=== PATIENT | female | born 1945 | race Caucasian/White ===

== ENCOUNTER 2017-02-13 12:14 | Emergency (ER) | payer OTHER ==
[~2017-02-13 12:14] MED LIST: ATENOLOL25 M1 PO; BENTYL10 M1 PO; CERTAGEN1 EACH PO; COLESTID1 GM PO; HCTZ25 MG PO; K-TAB ER20 MEQ PO; LEVAQUIN500 MG PO; MEDROL 4MG DOSEP4 MG PO; NORVASC 10MG TA10 MG PO; PLAVIX75 MG PO; PRINIVIL20 MG PO; PROBIOTIC PO; PROMETHAZINE-D120 ML PO; PROTONIX 40MG T40 MG PO; VENTOLIN (2.5 MG/3 M NEB; VYTORIN 10-201 EACH PO; ZOFRAN4 MG PO
[2017-02-13 13:19] LABS: BASOPHIL 0.3 % (0-2); EOSINOPHIL 1.2 % (0-7); HCT 38.6 % (37.0-47.0); HGB 12.6 g/dl (12.5-16.0); LYMPHOCYTE 25.8 % (15-48); MCH 27.7 pg (25.0-31.0); MCHC 32.6 g/dL (32.0-36.0); MCV 84.8 fL (78.0-100.0); MPV 10.6 fL (6.0-9.5); NEUTROPHIL 62.7 % (41-80); PLT 314 K/uL (150-400); RBC 4.55 M/uL (4.20-5.40); WBC 9.4 K/uL (4.0-10.5)
[2017-02-13 13:25] LABS: BILIRUBIN NEGATIVE (NEGATIVE); BLOOD NEGATIVE Ery/uL (NEGATIVE); CLARITY CLEAR (CLEAR); COLOR YELLOW (YELLOW); GLUCOSE (U) NORMAL (NORMAL); KETONE (U) NEGATIVE (NEGATIVE); LEUKOCYTES NEGATIVE Leu/uL (NEGATIVE); NITRITE NEGATIVE (NEGATIVE); PROTEIN NEGATIVE (NEGATIVE); UROBILINOGEN 0.2 mg/dL (0.2-1.0); pH 6.5 (5.0-9.0)
[2017-02-13 13:32] LABS: ALBUMIN 4.2 g/dL (3.4-4.8); BILIRUBIN - TOTAL 0.2 mg/dL (0.1-1.0); CREATININE 1.6 mg/dL (0.5-1.0); GLOBULIN (CALCULATION) 3.1 g/dL (2.2-4.2); POTASSIUM 4.4 mmol/L (3.5-5.1); TOTAL PROTEIN 7.3 g/dL (6.4-8.3)
[2017-02-13 13:33] LABS: LACTIC ACID 1.1 mmol/L (0.5-2.2)
== END 2017-02-13 14:45 | disposition home or self-care (01) ==
LOC: FER 12:14
PROVIDERS: Nurse Practitioner Family
DX: R19.7 Diarrhea, unspecified (principal); I10 Essential (primary) hypertension; Z79.02 Long term (current) use of antithrombotics/antiplatelets; Z79.899 Other long term (current) drug therapy
CPT/HCPCS: 36415; 80053; 81003; 82150; 83605; 83690; 85025; 87045; 87046; 87493

== ENCOUNTER 2020-10-27 09:25 | Emergency (ER) | payer OTHER ==
[~2020-10-27 09:25] MED LIST changes: +ALL DAY ALLERGY10 M3 PO; +BENTYL10 MG PO; +LEVAQUIN750 MG PO; +PROMETHAZINE/C120 ML PO
[2020-10-27] MEDS ORDERED: COLACE100 MG PO (12:10)
== END 2020-10-27 12:31 | disposition home or self-care (01) ==
LOC: FER 09:25
DX: K59.00 Constipation, unspecified (principal); I10 Essential (primary) hypertension; Z86.73 Personal history of transient ischemic attack (TIA), and cerebral infarction without residual deficits; Z88.0 Allergy status to penicillin; Z79.02 Long term (current) use of antithrombotics/antiplatelets; Z79.899 Other long term (current) drug therapy
CPT/HCPCS: 74018